=== PATIENT | female | born 2005 ===

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

== ENCOUNTER 2025-01-14 09:29 | Outpatient (CLI) | payer BC ==
[2025-01-14 10:16] LABS: Hemoglobin 10.4 g/dL (12.2-16.2); Nucleated Red Blood Cells % 0.0 %
[2025-01-14 10:17] LABS: Hematocrit 34.2 % (36.0-46.0); Mean Corpuscular Hemoglobin 21.2 pg (28.0-32.0); Mean Corpuscular Volume 69.5 fL (80.0-100.0)
[2025-01-14 10:40] LABS: Alanine Aminotransferase 12 U/L (7-40); Alkaline Phosphatase 107 U/L (46-116); Anion Gap 11 (5-15); BUN/Creatinine Ratio 8.8 (10.0-20.0); Calcium 9.6 mg/dL (8.7-10.4); Carbon Dioxide 25 mmol/L (20-31); Chloride 105 mmol/L (98-107); Glucose 93 mg/dL (74-106); Potassium 4.1 mmol/L (3.5-5.1); Sodium 141 mmol/L (136-145)
[2025-01-14 10:41] LABS: Bilirubin, Total 0.5 mg/dL (0.2-1.0); Total Iron Binding Capacity 394.0 ug/dL (250-425)
[2025-01-14 10:50] LABS: Albumin 4.8 g/dL (3.2-4.8); Blood Urea Nitrogen 6 mg/dL (9-23); Total Protein 8.4 g/dL (5.7-8.2)
[2025-01-14 10:52] LABS: Iron 29.0 ug/dL (50-170)
== END 2025-01-14 17:00 | disposition home or self-care (01) ==
LOC: LAB 09:29
PROVIDERS: ATTEND Nurse Practitioner Family
DX: D50.9 Iron deficiency anemia, unspecified (principal)
CPT/HCPCS: 36415; 80053; 83540; 83550; 84443; 85025